=== PATIENT | male | born 2000 | race Hispanic/Latino ===

== ENCOUNTER 2021-09-10 11:35 | Emergency (ER) | payer MEDICAID, OTHER ==
[~2021-09-10] VITALS: Ht 177.8 cm; Wt 81.6 kg
[2021-09-10] MEDS ORDERED: SILVER NITRATE APPLICATOR 1 SWAB TP ONE (12:06)
[2021-09-10] MEDS ORDERED: TETANUS/DIPHTHERIA TOXOID [ADULT] 0.5 ML VIAL IM ONE (12:08)
[2021-09-10] MEDS ORDERED: KETOROLAC 30MG VIAL (30MG/ML) ONE (12:08)
[2021-09-10] MEDS ORDERED: IBUP-2070 PO (12:49)
[2021-09-10 13:08] VITALS: BP 125/70
== END 2021-09-10 13:14 | disposition home or self-care (01) ==
LOC: EDH 11:35
DX: S61.210A Laceration without foreign body of right index finger without damage to nail, initial encounter (principal); S61.212A Laceration without foreign body of right middle finger without damage to nail, initial encounter; Z79.1 Long term (current) use of non-steroidal anti-inflammatories (NSAID); W26.8XXA Contact with other sharp object(s), not elsewhere classified, initial encounter; Y93.89 Activity, other specified; Y92.810 Car as the place of occurrence of the external cause; Y99.8 Other external cause status
CPT/HCPCS: 90471; 90714; 96372; 99284; J1885